=== PATIENT | male | born 1970 | race Caucasian/White ===

== ENCOUNTER 2018-05-13 13:24 | Emergency (ER) | payer MEDICARE ==
[~2018-05-13] VITALS: Ht 188 cm; Wt 145.5 kg
[2018-05-13 13:46] VITALS: Ht 188 cm; Wt 145.5 kg
[2018-05-13] MEDS ORDERED: TIAZAC/CARDIZE240 M1 PO (13:48)
[2018-05-13 14:40] LABS: BASOPHILS 0.2 % (0-2); EOSINOPHILS 1.5 % (0-7); HEMATOCRIT 45.2 % (42.0-54.0); HEMOGLOBIN 15.6 g/dL (13.5-17.5); IMMATURE GRANULOCYTES 0.8 % (0-5); LYMPHOCYTES 19.6 % (15-50); MCH 29.1 pg (26.0-34.0); MCHC 34.5 g/dL (31.0-37.0); MCV 84.3 fL (80.0-100.0); MEAN PLATELET VOLUME 9.5 fL (7.4-10.4); NEUTROPHILS 72.9 % (40-80); PLATELET COUNT 299 10x3/uL (130-400); RBC 5.36 10x6/uL (4.20-6.10); RDW 13.1 % (11.5-14.5); WBC 15.4 10x3/uL (4.8-10.8)
[2018-05-13 14:57] LABS: ALBUMIN 3.9 g/dL (3.4-5.0); ALKALINE PHOSPHATASE 78 U/L (46-116); ALT (SGPT) 49 U/L (10-68); BILIRUBIN - TOTAL 0.63 mg/dL (0.2-1.3); CALC OSMOLALITY 276 mosm/kg (275-300); CALCIUM 8.8 mg/dL (8.5-10.1); CARBON DIOXIDE 31.1 mmol/L (21.0-32.0); CHLORIDE - SERUM 99 mmol/L (98-107); CREATININE - SERUM 0.8 mg/dL (0.6-1.3); GLUCOSE 132 mg/dL (74-106); PROTEIN - SERUM 7.6 g/dL (6.4-8.2); SODIUM 138 mmol/L (136-145); UREA NITROGEN 9 mg/dL (7-18); eGFR NON AFRICAN AMERICAN > 90 mL/min (90-120)
[2018-05-13 16:19] LABS: INR 0.98 (0.85-1.17); PROTIME 12.6 SECONDS (11.6-15.0)
[2018-05-13 16:21] LABS: D-DIMER-QUANTITATIVE 0.39 ug/mLFEU (0.20-0.54)
[2018-05-13 16:34] LABS: C-REACTIVE PROTEIN 3.2 mg/dL (0.0-0.9); CKMB 1.1 U/L (0.0-3.6); CREATINE KINASE 177 UL (21-232)
[2018-05-13 19:10] VITALS: BP 171/107
== END 2018-05-13 19:11 | disposition home or self-care (01) ==
LOC: D.ER 13:24
PROVIDERS: Family Medicine
DX: M79.605 Pain in left leg (principal); M79.604 Pain in right leg; R60.0 Localized edema; I10 Essential (primary) hypertension

== ENCOUNTER 2020-05-13 05:55 | Emergency (ER) | payer MEDICARE ==
[~2020-05-13] VITALS: Ht 188 cm; Wt 140.9 kg
[~2020-05-13 05:55] MED LIST: TIAZAC/CARDIZE240 M1 PO
[2020-05-13 06:01] VITALS: Ht 188 cm; Wt 140.9 kg
[2020-05-13] MEDS ORDERED: HYDROCODON-ACE1 EAC2 PO (06:56)
[2020-05-13 07:15] VITALS: BP 124/81
== END 2020-05-13 07:15 | disposition home or self-care (01) ==
LOC: D.ER 05:55
DX: T23.202A Burn of second degree of left hand, unspecified site, initial encounter (principal); I10 Essential (primary) hypertension; X12.XXXA Contact with other hot fluids, initial encounter; Y93.9 Activity, unspecified; Y92.9 Unspecified place or not applicable